=== PATIENT | male | born 2005 | race Caucasian/White ===

== ENCOUNTER 2024-04-23 15:14 | Inpatient (IN) | payer OTHER ==
[~2024-04-23] VITALS: Ht 177.8 cm; Wt 72.2 kg
[2024-04-23 17:09] LABS: HEMATOCRIT 44.8 % (42.0-52.0); HEMOGLOBIN 14.8 g/dl (13.5-17.5); MEAN CORPUSCULAR HEMOGLOBIN 30.3 pg (27.0-33.0); MEAN CORPUSCULAR VOLUME 91.8 fl (80.0-96.0); PLATELET COUNT, AUTOMATED 338 10^3/uL (150-450); RED BLOOD COUNT 4.88 10^6/uL (4.30-6.10); WHITE BLOOD COUNT 7.8 10^3/uL (4.0-10.0)
[2024-04-23 17:28] LABS: ETHYL ALCOHOL (ETHANOL) < 0.003 % (0.000-0.010)
[2024-04-23 17:30] LABS: ALBUMIN 4.4 G/DL (3.2-5.2); ALKALINE PHOSPHATASE 105 U/L (40-129); ALT/SGPT 21 U/L (7.0-40); AST/SGOT 21 U/L (<34); BILIRUBIN,DIRECT 0.2 MG/DL (<0.4); BILIRUBIN,TOTAL 0.4 MG/DL (0.3-1.2); BLOOD UREA NITROGEN 14 MG/DL (9-23); CALCIUM LEVEL 9.9 MG/DL (8.5-10.1); CARBON DIOXIDE LEVEL 29 MMOL/L (20-31); CHLORIDE LEVEL 105 MMOL/L (98-107); CREATININE FOR GFR 0.73 MG/DL (0.70-1.30); GLUCOSE, FASTING 85 MG/DL (60-100); POTASSIUM SERUM 4.1 MMOL/L (3.5-5.1); SALICYLATE LEVEL < 3.0 MG/DL (<30); SODIUM LEVEL 142 MMOL/L (136-145); TOTAL PROTEIN 7.6 G/DL (5.7-8.2)
[2024-04-23 17:37] LABS: METHADONE URINE NEGATIVE (NEGATIVE); OPIATES URINE NEGATIVE (NEGATIVE)
[2024-04-23 17:38] LABS: AMPHETAMINES LEVEL URINE NEGATIVE (NEGATIVE); BARBITURATES URINE NEGATIVE (NEGATIVE); BENZODIAZEPINES URINE NEGATIVE (NEGATIVE); COCAINE METABOLITE URINE NEGATIVE (NEGATIVE); PHENCYCLIDINE URINE NEGATIVE (NEGATIVE)
[2024-04-23 17:39] LABS: CANNABINOIDS URINE POSITIVE (NEGATIVE)
[2024-04-23] MEDS ORDERED: HOME MED LIST COMPLETE! XX SCH (18:45)
[2024-04-23] MEDS ORDERED: MAALOX 30 ML SUSP *UDC PO PRN (19:35)
[2024-04-23] MEDS ORDERED: MOM 30ML SUSPENSION UDC PO PRN (19:35)
[2024-04-23 21:00] VITALS: BP 129/81; TEMP 97.1; O2SAT 99
[2024-04-24 06:33] VITALS: BP 150/79; TEMP 97.9; O2SAT 97
[2024-04-24] MEDS: NICOTINE 14 MG/24 HR TRANSDERMAL TD SCH (09:00)
[2024-04-24] MEDS ORDERED: BENZTROPINE 0.5 MG TAB PO PRN (10:50)
[2024-04-24] MEDS: RISPERIDONE 1 MG TAB PO SCH (11:02)
[2024-04-24 14:58] VITALS: BP 144/81; TEMP 97.9; O2SAT 99
[2024-04-24] MEDS: traZODone 50 MG TAB PO PRN (20:09)
[2024-04-24] MEDS: NEOSPORIN TOP OINT 15GM TOP SCH (20:09)
[2024-04-25 06:14] VITALS: BP 134/75; TEMP 97.6; O2SAT 99
[2024-04-25] MEDS ORDERED: NICOTINE 14 MG/24 HR TRANSDERMAL TD PRN (09:00)
[2024-04-25 16:35] VITALS: BP 140/87; TEMP 97.7; O2SAT 98
[2024-04-26 06:13] VITALS: BP 127/87; TEMP 97.9; O2SAT 98
[2024-04-26] MEDS: IBUPROFEN 400MG TAB PO PRN (15:55)
[2024-04-26 16:15] VITALS: BP 144/96; TEMP 98.2; O2SAT 96
[2024-04-27] MEDS: ACETAMINOPHEN 325 MG TAB PO PRN (00:12)
[2024-04-27 06:20] VITALS: BP 156/86; TEMP 97.7; O2SAT 96
[2024-04-27] MEDS: risperiDONE 2 MG TAB PO SCH (09:34)
[2024-04-27] MEDS: BENZTROPINE 1 MG TAB PO SCH (09:34)
[2024-04-27 15:36] VITALS: BP 120/88; TEMP 97.6; O2SAT 97
[2024-04-27] MEDS: QUEtiapine FUMARATE 100 MG TAB PO SCH (20:23)
[2024-04-27] MEDS: diphenhydrAMINE 25MG CAP PO PRN (20:25)
[2024-04-28 16:47] VITALS: BP 152/88; TEMP 97.8; O2SAT 97
[2024-04-29] MEDS: risperiDONE 2 MG TAB PO SCH (08:10)
[2024-04-29 15:05] VITALS: BP 154/86; TEMP 97.6; O2SAT 100
[2024-04-29] MEDS ORDERED: risperiDONE 2 MG TAB PO SCH (21:00)
[2024-04-30 06:19] VITALS: BP 118/83; TEMP 98; O2SAT 100
[2024-04-30 14:49] VITALS: BP 142/98; TEMP 99.7; O2SAT 96
[2024-04-30 15:39] VITALS: BP 142/80; TEMP 97.8; O2SAT 96
[2024-05-01 06:18] VITALS: BP 151/74; TEMP 97.5; O2SAT 98
[2024-05-01] MEDS: diphenhydrAMINE 50MG CAP PO STA (09:13)
[2024-05-01 16:04] VITALS: BP 130/87; TEMP 97.5; O2SAT 97
[2024-05-01] MEDS: OLANZapine 5 MG TAB PO PRN (20:34)
[2024-05-01] MEDS: RISPERIDONE 1 MG TAB PO SCH (20:34)
[2024-05-02 06:25] VITALS: BP 126/76; TEMP 97.3; O2SAT 97
[2024-05-02 16:05] VITALS: BP 133/81; TEMP 97.8; O2SAT 98
[2024-05-03 07:08] VITALS: BP 136/76; TEMP 97.6; O2SAT 99
[2024-05-03 14:50] VITALS: BP 141/91; TEMP 97.8; O2SAT 97
[2024-05-04 06:23] VITALS: BP 134/64; TEMP 97.5; O2SAT 99
[2024-05-04] MEDS: risperiDONE 3 MG TAB PO SCH (08:11)
[2024-05-04 15:41] VITALS: BP 147/89; TEMP 97.5; O2SAT 95
[2024-05-05 06:41] VITALS: BP 138/83; TEMP 97.1; O2SAT 100
[2024-05-05 14:54] VITALS: BP 123/82; TEMP 97.9; O2SAT 96
[2024-05-05] MEDS: risperiDONE 2 MG TAB PO SCH (20:18)
[2024-05-06 06:12] VITALS: BP 121/66; TEMP 98.3; O2SAT 96
[2024-05-06 16:33] VITALS: BP 137/89; TEMP 97.4; O2SAT 95
[2024-05-06] MEDS ORDERED: BENZ1TAB5 PO (23:33)
[2024-05-06] MEDS ORDERED: RISP4TAB33 PO (23:33)
[2024-05-07 06:41] VITALS: BP 157/90; TEMP 97.4; O2SAT 96
== END 2024-05-07 13:35 | disposition home or self-care (01) | DRG 885 ==
LOC: M ED 15:14 → M ED INP 19:33 → M PSY 20:50
PROVIDERS: ADMIT Psychiatry & Neurology Neurology; ATTEND Psychiatry & Neurology Psychiatry
DX: F20.9 Schizophrenia, unspecified (principal); Z91.148 Patient's other noncompliance with medication regimen for other reason; F17.200 Nicotine dependence, unspecified, uncomplicated; Z56.0 Unemployment, unspecified; L27.0 Generalized skin eruption due to drugs and medicaments taken internally; T43.4X5A Adverse effect of butyrophenone and thiothixene neuroleptics, initial encounter